=== PATIENT | female | born 1995 ===

== ENCOUNTER 2016-04-16 16:28 | Emergency (ER) | payer BC ==
--- NOTE | 2016-04-16 17:50 | UC ---
Throat Pain/Nasal Candido HPI - HPI Summary HPI Summary: patient has a sinus infection 1 month ago. has started having sinus congestion and fatigue. no fever. Patient main concern is her increase in fatique, she is in tears, doent know how she can get all the things done she needs to do, do to the lack of energy. - History of Current Complaint Chief Complaint: UCRespiratory Stated Complaint: SOUGH,CONGESTION,ST Hx Obtained From: Patient Hx Last Menstrual Period: 03/21/16 ?: No Onset/Duration: Sudden Onset, Lasting Days Severity: Mild Pain Intensity: 4 Pain Scale Used: 0-10 Numeric Cough: Nonproductive Associated Signs & Symptoms: Positive: Dysphagia, Sinus Discomfort, Nasal Discharge - Epiglottits Risk Factors Epiglottis Risk Factors: Negative - Allergies/Home Medications Allergies/Adverse Reactions: Allergies Allergy/AdvReac Type Severity Reaction Status Date / Time No Known Allergies Allergy Verified 04/16/16 17:03 Home Medications: Home Medications Fluticasone HFA 110 mcg(NF) [Flovent HFA 110 mcg(NF)] 1 puff INH BID 04/16/16 [ History Confirmed 04/16/16] Norethin Acet & Estrad-Fe [Microgestin Fe 1-20 mg-Mcg] 1 tab PO 04/16/16 [ History] PMH/Surg Hx/FS Hx/Imm Hx Previously Healthy: Yes Endocrine History Of: Denies: Diabetes, Thyroid Disease Cardiovascular History Of: Denies: Cardiac Disorders, Hypertension Respiratory History Of: Reports: Asthma Denies: COPD GI/ History Of: Denies: Ulcer - Surgical History Surgical History: None - Family History Known Family History: Negative: Hypertension - Social History Alcohol Use: Weekly Substance Use Type: None Smoking Status (MU): Never Smoked Tobacco Review of Systems Constitutional: Fatigue Skin: Negative Eyes: Negative ENT: Sore Throat, Ear Ache Respiratory: Cough Cardiovascular: Negative Gastrointestinal: Negative Genitourinary: Negative Motor: Negative Neurovascular: Negative Musculoskeletal: Negative Neurological: Headache Psychological: Negative All Other Systems Reviewed And Are Negative: Yes Physical Exam Triage Information Reviewed: Yes Appearance: Well-Nourished, Ill-Appearing, Pain Distress Vital Signs: Initial Vital Signs Temp 98.8 F 04/16/16 16:58 Pulse 73 04/16/16 16:58 Resp 18 04/16/16 16:58 BP 118/64 04/16/16 16:58 Pulse Ox 100 04/16/16 16:58 Vital Signs Reviewed: Yes Eye Exam: Normal Eyes: Positive: Conjunctiva Clear ENT Exam: Normal ENT: Positive: Hearing grossly normal, Pharynx normal, Nasal congestion, TM bulging - serous fluid noted in both ears Dental Exam: Normal Neck exam: Normal Neck: Positive: Supple, Nontender, No Lymphadenopathy - cervical, Enlarged Nodes @ Respiratory Exam: Normal Respiratory: Positive: Chest non-tender, Lungs clear, Normal breath sounds Cardiovascular Exam: Normal Cardiovascular: Positive: RRR, No Murmur, Pulses Normal Abdominal Exam: Normal Abdomen Description: Positive: Nontender, No Organomegaly, Soft Bowel Sounds: Positive: Present Musculoskeletal Exam: Normal Musculoskeletal: Positive: Strength Intact, ROM Intact, No Edema Neurological Exam: Normal Neurological: Positive: Alert Psychological Exam: Normal Skin Exam: Normal Throat Pain/Nasal Course/Dx - Course Course Of Treatment: hx obtained, exam performed, patients main concern is her fatigue, serous otits in right ear noted. wheezing and cough present hx of asthma. monospot obtained. and medications prescribed - Differential Dx/Diagnosis Differential Diagnosis/HQI/PQRI: Influenza, Laryngitis, Otitis Media, Pharyngitis, Sinusitis, Tonsillitis, URI Provider Diagnoses: wheezing. cough. fatigue serous otitis right ear Discharge - Discharge Plan Condition: Stable Disposition: HOME Patient Education Materials: Serous Otitis Media (ED) Additional Instructions: I have prescribed some prednisone to help with the cough and asthma exacerbative symptoms. I am also drawing a mono spot to rule out mononucleosis. will will call you with positive results. Get plenty of rest and increase your fluid intake. Good hand hygiene. Ibuprofen and tylenol for pain and fever.
[2016-04-17 10:37] LABS: EBV Response YES
[2016-04-17 11:04] LABS: Manual Entry Verification AS; Mono Internal Control QC Line Present; Mono Kit Lot# 607004
[2016-04-18 12:07] LABS: EBV Capsid Ag IgG Ab Positive (Negative); EBV Capsid Ag IgM Ab Negative (Negative)
== END 2016-04-16 18:22 | disposition home or self-care (01) ==
LOC: UCEAST 16:28
DX: R06.2 Wheezing (principal); R05 Cough; R53.83 Other fatigue; H65.91 Unspecified nonsuppurative otitis media, right ear
CPT/HCPCS: 36415; 86308; 86664; 86665; 99202; G0463